=== PATIENT | male | born 1985 | race African-American/Black ===

== ENCOUNTER 2016-07-12 09:30 | Inpatient (IN) | payer OTHER ==
[~2016-07-12] VITALS: Ht 188 cm; Wt 118.8 kg
[2016-07-12 10:18] LABS: EOSINOPHIL (%) 1.7 % (0-5); EOSINOPHIL COUNT 0.1 K/uL (0-0.3); HEMATOCRIT 43.2 % (38.0-50.0); IMMATURE GRANULOCYTE (%) 0.3 % (0.0-0.7); IMMATURE GRANULOCYTE COUNT 0.2 K/uL; LYMPHOCYTE COUNT 2.1 K/uL (1.0-2.8); MCH 31.4 PG (29.0-34.0); MCHC 35.9 G/DL (30.0-36.0); MCV 87.6 FL (86-99); MEAN PLAT.VOLUME 9.6 uM^3 (9.0-12.4); MONOCYTE (%) 13.1 % (3-12); MONOCYTE COUNT 0.8 K/uL (0-0.8); NEUTROPHIL (%) 49.4 % (45-76); NEUTROPHIL COUNT 2.9 K/uL (1.8-6.4); PLATELET COUNT 190 K/uL (156-360); RBC DIS.WIDTH-CV 14.2 % (11.8-14.6); RED BLOOD COUNT 4.93 M/uL (4.00-5.50); WHITE BLOOD COUNT 5.9 K/uL (4.1-10.2)
[2016-07-12 10:26] LABS: CHLORIDE 107 mEq/L (99-109); SODIUM 140 mEq/L (136-147)
[2016-07-12 10:28] LABS: GLUCOSE 99 mg/dL (70-99)
[2016-07-12 10:29] LABS: ANION GAP 9 MEQ/L (2-14)
[2016-07-12 10:30] LABS: TOTAL BILIRUBIN 0.5 mg/dL (0.0-1.0)
[2016-07-12 10:31] LABS: SERUM ETHYL ALCOHOL < 10 mg/dL
[2016-07-12 10:32] LABS: ALKALINE PHOSPHATASE 59 IU/L (3-129); GFR ESTIMATE (CALCULATED) > 59 mL/min/
[2016-07-12 10:33] LABS: UREA NITROGEN (BUN) 10 mg/dL (9-23)
[2016-07-12 10:33] LABS: ADD MEDTOX COMMENT Y; AMPHETAMINE NEGATIVE (500 ng/mL); BARBITURATES NEGATIVE (200 ng/mL); BENZODIAZEPINES PRESUMPTIVE POSITIVE (150 ng/mL); COCAINE NEGATIVE (150 ng/mL); INTERNAL CONTROLS VALID? YES; METHADONE NEGATIVE (200 ng/mL); METHAMPHETAMINE NEGATIVE (500 ng/mL); OPIATES (MORPHINE) NEGATIVE (100 ng/mL); OXYCODONE NEGATIVE (100 ng/mL); PHENCYCLIDINE NEGATIVE (25 ng/mL); PROPOXYPHENE NEGATIVE (300 ng/mL); THC CANNABINOIDS NEGATIVE (50 ng/mL); TRICYCLIC ANTIDEPRESSANTS NEGATIVE (300 ng/mL)
[2016-07-12 11:30] LABS: BENZODIAZEPINES QUANT VALUE 0 NG/ML
[2016-07-12 11:32] LABS: BENZODIAZEPINES, URINE SCREEN Negative (200 ng/mL)
[2016-07-12] MEDS ORDERED: GABAPENTIN300 MG PO (12:50)
[2016-07-12] MEDS ORDERED: CARBAMAZEPINE100 M2 PO (12:53)
[2016-07-12] MEDS ORDERED: BENZTROPINE MESY1 MG PO (12:55)
[2016-07-12] MEDS ORDERED: ZIPRASIDONE HCL20 MG PO (12:55)
[2016-07-12] MEDS ORDERED: CARVEDILOL6.25 MG PO (12:55)
[2016-07-12] MEDS ORDERED: OLANZAPINE10 MG PO (12:55)
[2016-07-12] MEDS ORDERED: COLACE100 MG PO (12:56)
[2016-07-12] MEDS ORDERED: ARTIFICIAL TEAR15 M1 BOTH EYES (12:56)
[2016-07-12] MEDS ORDERED: MIRTAZAPINE15 MG PO (12:57)
[2016-07-12] MEDS ORDERED: SPIRONOLACTONE25 MG PO (12:57)
[2016-07-12] MEDS ORDERED: TYLENOL REGULA325 MG PO (12:58)
[2016-07-12] MEDS ORDERED: LORAZEPAM2 MG PO (12:58)
[2016-07-12] MEDS ORDERED: MILK OF MAGN PO (12:59)
[2016-07-12] MEDS ORDERED: FLEET ENEMA-AD118 ML PR (13:00)
[2016-07-12] MEDS ORDERED: BISAC-EVAC10 MG PR (13:00)
[2016-07-12 14:38] VITALS: BP 141/76
[2016-07-13 09:20] VITALS: BP 138/91
[2016-07-13 15:09] VITALS: BP 121/56
[2016-07-14 07:35] VITALS: BP 116/68
[2016-07-14 15:27] VITALS: BP 120/61
[2016-07-15 08:02] VITALS: BP 136/78
[2016-07-15 15:00] VITALS: BP 126/76
[2016-07-16 07:31] VITALS: BP 127/77
[2016-07-16 15:28] VITALS: BP 131/83
[2016-07-17 07:59] VITALS: BP 110/54
[2016-07-17 15:01] VITALS: BP 143/92
[2016-07-18 07:37] VITALS: BP 126/82
[2016-07-18 15:16] VITALS: BP 94/53
[2016-07-19 07:50] VITALS: BP 131/76
[2016-07-19 15:46] VITALS: BP 125/81
[2016-07-20 16:07] VITALS: BP 135/99
[2016-07-21 07:50] VITALS: BP 122/80
[2016-07-21 17:53] VITALS: BP 113/80
[2016-07-22 16:01] VITALS: BP 122/69
[2016-07-23 07:50] VITALS: BP 121/80
[2016-07-23 15:42] VITALS: BP 119/65
[2016-07-24 17:20] VITALS: BP 105/59
[2016-07-25 08:01] VITALS: BP 122/80
[2016-07-25 15:48] VITALS: BP 128/66
[2016-07-26 15:22] VITALS: BP 94/53
[2016-07-28 09:54] VITALS: BP 96/61
[2016-07-28 15:55] VITALS: BP 89/64
[2016-07-29 08:42] VITALS: BP 119/75
[2016-07-29 15:58] VITALS: BP 121/71
[2016-07-30 07:43] VITALS: BP 103/57
[2016-07-30 14:53] VITALS: BP 101/51
[2016-07-31 09:57] VITALS: BP 106/62
[2016-07-31 13:30] LABS: ANION GAP 6 MEQ/L (2-14); CHLORIDE 102 MEQ/L (99-109); GFR ESTIMATE (CALCULATED) > 59 mL/min/; GLUCOSE 102 mg/dL (70-99); POTASSIUM 4.1 MEQ/L (3.7-5.4); SAMPLE HEMOLYSIS CHECK 0; SAMPLE ICTERIC CHECK 0; SAMPLE LIPEMIA CHECK 0; SODIUM 138 MEQ/L (136-147); UREA NITROGEN (BUN) 10 mg/dL (9-23)
[2016-07-31 15:09] VITALS: BP 102/50
[2016-08-01 10:47] VITALS: BP 112/55
[2016-08-01 15:48] VITALS: BP 87/53
[2016-08-01 18:16] VITALS: BP 112/59
[2016-08-02 07:53] VITALS: BP 119/63
[2016-08-02 15:48] VITALS: BP 108/50
[2016-08-03 08:06] VITALS: BP 129/62
[2016-08-03 15:29] VITALS: BP 121/70
[2016-08-04 07:41] VITALS: BP 121/75
[2016-08-04 15:30] VITALS: BP 127/76
[2016-08-05 07:48] VITALS: BP 115/55
[2016-08-05 15:53] VITALS: BP 121/61
[2016-08-06 07:56] VITALS: BP 129/62
[2016-08-06 15:33] VITALS: BP 101/59
[2016-08-07 07:52] VITALS: BP 112/55
[2016-08-07 16:09] VITALS: BP 126/68
[2016-08-08 07:56] VITALS: BP 135/83
[2016-08-08 13:43] LABS: EOSINOPHIL (%) 4.4 % (0-5); EOSINOPHIL COUNT 0.2 K/uL (0-0.3); HEMATOCRIT 45.7 % (38.0-50.0); IMMATURE GRANULOCYTE (%) 0.2 % (0.0-0.7); LYMPHOCYTE COUNT 2.3 K/uL (1.0-2.8); MCH 30.6 PG (29.0-34.0); MCHC 34.6 G/DL (30.0-36.0); MCV 88.4 FL (86-99); MEAN PLAT.VOLUME 10.6 uM^3 (9.0-12.4); MONOCYTE (%) 15.7 % (3-12); MONOCYTE COUNT 0.9 K/uL (0-0.8); NEUTROPHIL (%) 37.1 % (45-76); RBC DIS.WIDTH-CV 12.3 % (11.8-14.6); RBC DIS.WIDTH-SD 40.3 % (39-53); RED BLOOD COUNT 5.17 M/uL (4.00-5.50); WHITE BLOOD COUNT 5.5 K/uL (4.1-10.2)
[2016-08-08 13:54] LABS: PLATELET COUNT 125 K/uL (156-360)
[2016-08-08 14:09] LABS: ALKALINE PHOSPHATASE 44 IU/L (3-129); ANION GAP 5 MEQ/L (2-14); CHLORIDE 102 MEQ/L (99-109); GFR ESTIMATE (CALCULATED) > 59 mL/min/; GLUCOSE 92 mg/dL (70-99); POTASSIUM 4.5 MEQ/L (3.7-5.4); SAMPLE HEMOLYSIS CHECK 0; SAMPLE ICTERIC CHECK 0; SAMPLE LIPEMIA CHECK 0; SODIUM 137 MEQ/L (136-147); TOTAL BILIRUBIN 0.4 MG/DL (0.0-1.0); UREA NITROGEN (BUN) 9 mg/dL (9-23)
[2016-08-08 15:23] VITALS: BP 92/51
[2016-08-09 08:12] VITALS: BP 112/69
[2016-08-09 11:04] LABS: EOSINOPHIL (%) 3.8 % (0-5); EOSINOPHIL COUNT 0.2 K/uL (0-0.3); HEMATOCRIT 45.9 % (38.0-50.0); IMMATURE GRANULOCYTE (%) 0.2 % (0.0-0.7); MCH 30.4 PG (29.0-34.0); MCHC 34.4 G/DL (30.0-36.0); MCV 88.3 FL (86-99); MEAN PLAT.VOLUME 10.8 uM^3 (9.0-12.4); MONOCYTE (%) 11.9 % (3-12); MONOCYTE COUNT 0.7 K/uL (0-0.8); NEUTROPHIL (%) 33.9 % (45-76); PLATELET COUNT 132 K/uL (156-360); RBC DIS.WIDTH-CV 12.4 % (11.8-14.6); RBC DIS.WIDTH-SD 40.2 % (39-53)
[2016-08-09 15:16] VITALS: BP 106/79
[2016-08-10 09:28] VITALS: BP 115/65
[2016-08-10 09:47] LABS: EOSINOPHIL (%) 3.7 % (0-5); EOSINOPHIL COUNT 0.3 K/uL (0-0.3); HEMATOCRIT 45.4 % (38.0-50.0); IMMATURE GRANULOCYTE (%) 0.3 % (0.0-0.7); INSTRUMENT ABS NEUTROPHIL CT 2.9 K/uL; LYMPHOCYTE COUNT 3.3 K/uL (1.0-2.8); MCHC 33.9 G/DL (30.0-36.0); MCV 88.3 FL (86-99); MEAN PLAT.VOLUME 10.7 uM^3 (9.0-12.4); MONOCYTE (%) 10.5 % (3-12); MONOCYTE COUNT 0.8 K/uL (0-0.8); NEUTROPHIL (%) 39.6 % (45-76); NEUTROPHIL COUNT 2.9 K/uL (1.8-6.4); PLATELET COUNT 138 K/uL (156-360); RBC DIS.WIDTH-CV 12.2 % (11.8-14.6); RBC DIS.WIDTH-SD 39.9 % (39-53); RED BLOOD COUNT 5.14 M/uL (4.00-5.50); WHITE BLOOD COUNT 7.3 K/uL (4.1-10.2)
[2016-08-10 15:51] VITALS: BP 108/65
[2016-08-11 07:57] VITALS: BP 121/68
[2016-08-11 16:09] VITALS: BP 95/59
[2016-08-13 09:06] VITALS: BP 80/51
[2016-08-13 10:11] LABS: CREATINE KINASE 296 IU/L (1-294); TOTAL CK 296 IU/L (1-294)
[2016-08-13 10:48] LABS: CK-MB 0.8 ng/mL (0.0-4.9)
[2016-08-13 15:58] VITALS: BP 103/55
[2016-08-14 12:39] LABS: EOSINOPHIL (%) 3.4 % (0-5); EOSINOPHIL COUNT 0.2 K/uL (0-0.3); HEMATOCRIT 43.3 % (38.0-50.0); IMMATURE GRANULOCYTE (%) 0.2 % (0.0-0.7); INSTRUMENT ABS NEUTROPHIL CT 1.3 K/uL; LYMPHOCYTE COUNT 2.4 K/uL (1.0-2.8); MCH 30.6 PG (29.0-34.0); MCHC 34.9 G/DL (30.0-36.0); MCV 87.8 FL (86-99); MEAN PLAT.VOLUME 10.4 uM^3 (9.0-12.4); MONOCYTE (%) 13.9 % (3-12); MONOCYTE COUNT 0.6 K/uL (0-0.8); NEUTROPHIL (%) 29.5 % (45-76); NEUTROPHIL COUNT 1.3 K/uL (1.8-6.4); PLATELET COUNT 151 K/uL (156-360); RBC DIS.WIDTH-CV 12.5 % (11.8-14.6); RBC DIS.WIDTH-SD 40.4 % (39-53); RED BLOOD COUNT 4.93 M/uL (4.00-5.50)
[2016-08-14 12:47] LABS: WHITE BLOOD COUNT 4.5 K/uL (4.1-10.2)
[2016-08-14 15:35] VITALS: BP 109/61
[2016-08-15 15:29] VITALS: BP 108/64
[2016-08-16 07:06] LABS: HEMATOCRIT 42.2 % (38.0-50.0); MCH 30.2 PG (29.0-34.0); MCHC 34.8 G/DL (30.0-36.0); MCV 86.7 FL (86-99); MEAN PLAT.VOLUME 10.2 uM^3 (9.0-12.4); NRBC (%) 0.3 /100 WBC (0-0); PLATELET COUNT 167 K/uL (156-360); RBC DIS.WIDTH-CV 12.2 % (11.8-14.6); RBC DIS.WIDTH-SD 38.9 % (39-53); RED BLOOD COUNT 4.87 M/uL (4.00-5.50); WHITE BLOOD COUNT 6.4 K/uL (4.1-10.2)
[2016-08-16 07:45] VITALS: BP 118/85
[2016-08-16 15:50] VITALS: BP 109/66
[2016-08-17 07:51] VITALS: BP 114/79
[2016-08-17 15:35] VITALS: BP 104/62
[2016-08-18 07:41] VITALS: BP 119/63
[2016-08-18 15:16] VITALS: BP 110/66
[2016-08-19 15:35] VITALS: BP 144/89
[2016-08-20 15:21] VITALS: BP 114/58
[2016-08-21 09:31] LABS: EOSINOPHIL (%) 1.1 % (0-5); EOSINOPHIL COUNT 0.1 K/uL (0-0.3); HEMATOCRIT 42.9 % (38.0-50.0); IMMATURE GRANULOCYTE (%) 0.3 % (0.0-0.7); INSTRUMENT ABS NEUTROPHIL CT 5.1 K/uL; MCH 30.4 PG (29.0-34.0); MEAN PLAT.VOLUME 10.4 uM^3 (9.0-12.4); MONOCYTE (%) 15.8 % (3-12); MONOCYTE COUNT 1.5 K/uL (0-0.8); NEUTROPHIL (%) 52.3 % (45-76); NEUTROPHIL COUNT 5.1 K/uL (1.8-6.4); PLATELET COUNT 142 K/uL (156-360); RBC DIS.WIDTH-CV 12.3 % (11.8-14.6); RBC DIS.WIDTH-SD 39.3 % (39-53); RED BLOOD COUNT 4.93 M/uL (4.00-5.50)
[2016-08-21 09:36] LABS: WHITE BLOOD COUNT 9.8 K/uL (4.1-10.2)
[2016-08-21 15:50] VITALS: BP 106/61
[2016-08-22 07:53] VITALS: BP 127/80
[2016-08-23] MEDS ORDERED: CARVEDILOL6.25 MG PO (09:01)
[2016-08-23] MEDS ORDERED: LATANOPROST2.5 ML BOTH EYES (09:01)
[2016-08-23] MEDS ORDERED: DIVALPROEX SOD500 M1 PO (09:01)
[2016-08-23] MEDS ORDERED: THORAZINE50 MG PO ×2 (09:01)
[2016-08-23] MEDS ORDERED: SPIRONOLACTONE25 MG PO (09:01)
[2016-08-23] MEDS ORDERED: TRAZODONE HCL100 MG PO (09:01)
[2016-08-23] MEDS ORDERED: OLANZAPINE5 MG PO (09:01)
[2016-08-23] MEDS ORDERED: ARTIFICIAL TEAR15 M1 BOTH EYES (09:01)
== END 2016-08-23 13:30 | disposition home or self-care (01) | DRG 885 ==
LOC: EME 09:30 → 1WEST 12:26 → EDOF 12:26 → 1WEST 14:26
PROVIDERS: Emergency Medicine; Internal Medicine Hematology & Oncology; Psychiatry & Neurology Psychiatry
DX: F20.0 Paranoid schizophrenia (principal); R44.0 Auditory hallucinations; I10 Essential (primary) hypertension; G47.23 Circadian rhythm sleep disorder, irregular sleep wake type; H40.9 Unspecified glaucoma; R45.1 Restlessness and agitation; F17.200 Nicotine dependence, unspecified, uncomplicated; D69.6 Thrombocytopenia, unspecified; Z88.8 Allergy status to other drugs, medicaments and biological substances; R45.850 Homicidal ideations; D70.9 Neutropenia, unspecified; T50.905A Adverse effect of unspecified drugs, medicaments and biological substances, initial encounter
CPT/HCPCS: 71020; 80048; 80053; 80164; 82550; 82553; 82607; 82746; 84999; 85025; 85027; 90837; 97150 GO; 97166 GO; 97530 GO; 99281; 99284; G0480; J1630; J2060; J2680; J3230; J3486; Q0161